=== PATIENT | male | born 1985 | race Hispanic/Latino ===

== ENCOUNTER 2021-01-19 11:49 | Emergency (ER) | payer OTHER ==
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
== END 2021-01-19 14:11 | disposition home or self-care (01) ==
LOC: ER 11:49
DX: S29.012A Strain of muscle and tendon of back wall of thorax, initial encounter (principal); V49.40XA Driver injured in collision with unspecified motor vehicles in traffic accident, initial encounter
CPT/HCPCS: 99282

== ENCOUNTER 2022-06-07 19:06 | Emergency (ER) | payer SELFPAY ==
--- OUTSIDE RECORDS SUMMARY | 2022-06-07 19:28 | XMS REPORT | Continuity of Care Document ---
:1985 Author Organization [facility] t Address [address] [place] [address] [address] [place] [address] Care Team Providers Name Role Phone Hector TAYLOR, Yola Primary Care Physician Nurse, [facility] Attending Clinician Unavailable Fernando Velasco MD Attending Clinician FERNANDO VELASCO Attending Clinician Unavailable Doctor Unassigned, [place] Attending Clinician Unavailable Problems This patient has no known problems. Allergies, Adverse Reactions, Alerts Allergy Allergy Status Severity Reaction(s) Onset Inactive Treating Comm ents Source Name Type Date Date Clinician NO KNOWN Drug Active Univers ALLERGIE Class ity of S [facility] Social History Social Habit Start Date Stop Date Quantity Comments Source Exposure to 2022-05-28 2022-06-[address] [facility]-CoV-2 00:00:00 16:13:[address] [facility] (event) Branch Tobacco use and 2022-06-07 2022-06-07 Smokeless tobacco Un iversity of exposure 00:00:00 00:00:00 non-user [facility] Sex Assigned At [birth year] Universit y of 00:00:00 00:00:00 [facility] Smoking Status Start Date Stop Date Source Tobacco [facility] Never [facility] Medications Ordered Filled Start Stop Current Ordering Indication Dosage Frequency Signature Comments Components Source Medication Medication Date Date Medication? Clinician (SIG) Name Name No known No No known Unive rs medications 06-07 medication it y of 18:50: s [address] Procedures Procedure Date / Time Performed Performing Clinician [facility] e CONSENT/REFUSAL FOR 2022-06-07 23:38:32 Doctor Unassigned, No Un [facility] DIAGNOSIS AND Name Medical Branch TREATMENT Encounters Start End Encounter Admission Attending Care Care Encounter Source Date/Time Date/Time Type Type Clinicians Facility Department ID 2022-06-07 2022-06-07 [facility] [id number] Univers 19:30:00 19:50:00 Visit Fernando Velasco [facility] [id number] ity of [place] [id number] Calvin as LEX?BLEA [id number] [address] MEDICAL OFFICE BUILDING 2022-06-07 2022-06-[address] [facility] [id number] Univers 19:30:00 19:30:[address] [facility] [place] [place] 2022-06-07 2022-06-07 Orders Doctor LIN [id number] Univers 00:00:00 00:00:00 Only Unassigned, DOMO [id number] ity of [place] [facility] [id number] Calvin as [id number] [place] [id number] Branch Results This patient has no known results.
[2022-06-07 20:14] LABS: Urine Blood 2+ (Negative); Urine Glucose Negative (Negative); Urine Protein Negative (Negative)
[2022-06-07] MEDS ORDERED: NA CHLORIDE 0.9% 1,000 ML ONE (20:29)
[2022-06-07] MEDS ORDERED: KETOROLAC 30 MG/ML INJ ONE (20:29)
[2022-06-07] MEDS ORDERED: ONDANSETRON 4 MG/2 ML VIAL ONE (20:29)
[2022-06-07 20:33] LABS: Urine Bacteria <20 /HPF (<20); Urine Mucus Slight /HPF (None Seen)
[2022-06-07 20:33] LABS: Absolute Lymphocytes (CBC) 2.7 K/uL (0.7-4.9); Hematocrit 47.2 % (39.6-49.0); Lymphocytes % 16.3 % (15.3-44.8); MCV 81.2 fL (80-100); MPV 7.5 fL (7.6-11.3); RBC Red Blood Cell Count 5.82 M/uL (4.33-5.43)
[2022-06-07 20:48] LABS: Protime INR 1.2
[2022-06-07 21:05] LABS: Albumin 3.7 g/dL (3.4-5.0); Potassium 3.8 mmol/L (3.5-5.1); Protein, Total 7.8 g/dL (6.4-8.2)
[2022-06-07] MEDS ORDERED: CEFTRIAXONE 1000 MG/VIAL ONE (21:38)
--- NOTE | 2022-06-07 22:31 | RAD REPORT ---
EXAM DESCRIPTION: CT - Abdomen Pelvis Wo Contrast - 06/07/2022 10:01 pm CLINICAL HISTORY: hematuria COMPARISON: No comparisons TECHNIQUE: Axial [address] imaging of the abdomen and pelvis was performed without IV contrast. No IV contrast was given because of allergy, abnormal renal function, patient refusal or physician re quest. No oral contrast was given. All CT scans are performed using dose optimization technique as appropriate and may include automated exposure control or mA/KV adjustment according to patient size. FINDINGS: No suspicious findings in the lung bases. Liver shows prominent fatty infiltration pattern with minimal sparing at the gallbladder fossa. No pa ncreas or spleen acute finding. Gallbladder and biliary tree are also without suspicious finding. No hydronephrosis or suspicious renal mass. No obstructing or nonobstructing calculi. No significant adrenal finding. Isodense renal masses and pyelonephritis cannot be excluded in the absence of IV con trast. The urinary bladder is without significant finding. No dilated bowel loops or bowel wall thickening. Appendix is normal. No free air, free fluid or infla mmatory stranding. No hernia, mass or bulky lymphadenopathy. No suspicious bony findings. IMPRESSION: No hydronephrosis, obstructing calculus or other acute finding. No abnormality to exp karla hematuria. Isodense masses and pyelonephritis are not excluded on a noncontrast study. Diffuse fatty infiltration of the liver.
--- NOTE | 2022-06-07 23:02 | ER ---
Nurse's Notes [facility] Name: Leon Chilel Jr Age: 37 yrs Sex: Male : 1985 Arrival Date: 06/07/2022 Time: 19:09 Bed 7 Private MD: Diagnosis: Acute cystitis with hematuria Presentation: 06/07 19:27 Chief complaint: Patient states: Blood tinged urine, pain when urinating since this ld1 morning. Coronavirus screen: At this time, the client does not indicate any symptoms associated with coronavirus-19. Ebola Screen: No symptoms or risks identified at this time. Initial Sepsis Screen: Does the patient meet any 2 criteria? No. Patient's initial sepsis screen is negative. Does the patient have a suspected source of infection? No. Patient's initial sepsis screen is negative. Risk Assessment: Do you want to hurt yourself or someone else? Patient reports no desire to harm self or others. Onset of symptoms was June 07, 2022 at 19:27. 19:27 Method Of Arrival: Ambulatory ld1 19:27 Acuity: CLAUDIA 3 ld1 Triage Assessment: 19:28 Headache History: Denies prior headaches. General: Appears in no apparent distress. ld1 comfortable, Behavior is calm, cooperative, appropriate for age. Pain: Complains of pain in meatus Pain does not radiate. Pain currently is 7 out of 10 on a pain scale. Quality of pain is described as burning, throbbing, Pain began 1 day ago. Is continuous, Also complains of no other associated symptoms. EENT: No signs and/or symptoms were reported regarding the EENT system. Neuro: Level of Consciousness is awake, alert, obeys commands, Oriented to person, place, time, situation. Cardiovascular: Capillary refill < 3 seconds Patient's skin is warm and dry. Respiratory: Airway is patent Respiratory effort is even, unlabored. GI: Abdomen is flat, non-distended. : Urine is blood tinged, Reports burning with urination. Derm: No signs and/or symptoms reported regarding the dermatologic system. Musculoskeletal: No signs and/or symptoms reported regarding the musculoskeletal system. Historical: - Allergies: 19: No Known Allergies; ld1 - Home Meds: 19: None [Active]; ld1 - PMHx: 19:28 None; ld1 - PSHx: 19:28 None; ld1 - Immunization history:: Adult Immunizations up to date, Client reports receiving the 2nd dose of the Covid vaccine. - Social history:: Smoking status: Patient denies any tobacco usage or history of. Patient/guardian denies using alcohol. Screenin:20 Abuse screen: Denies threats or abuse. Nutritional screening: No deficits noted. jb4 Tuberculosis screening: No symptoms or risk factors identified. Fall Risk None identified. Assessment: 20:20 General: Appears in no apparent distress. comfortable, Behavior is calm, cooperative, jb4 appropriate for age. Pain: Complains of pain in head of penis and shaft of penis Pain does not radiate. Pain currently is 7 out of 10 on a pain scale. Neuro: Level of Consciousness is awake, alert, obeys commands, Oriented to person, place, time, situation. Cardiovascular: Patient's skin is warm and dry. Respiratory: Airway is patent Respiratory effort is even, unlabored, Respiratory pattern is regular, symmetrical. GI: No signs and/or symptoms were reported involving the gastrointestinal system. : Reports burning with urination, pain with urination, Bloody urine with blood clots. EENT: No signs and/or symptoms were reported regarding the EENT system. Derm: Skin is intact, Skin is pink, warm \T\ dry. Musculoskeletal: Circulation, motion, and sensation intact. Range of motion: intact in all extremities. 21:30 Reassessment: Patient appears in no apparent distress at this time. Patient and/or jb4 family updated on plan of care and expected duration. Pain level reassessed. Patient is alert, oriented x 3, equal unlabored respirations, skin warm/dry/pink. 22:28 Reassessment: Patient appears in no apparent distress at this time. Patient and/or jb4 family updated on plan of care and expected duration. Pain level reassessed. Patient is alert, oriented x 3, equal unlabored respirations, skin warm/dry/pink. Reports still having headache, but it is now tolerable, denies needing anything else for pain. Patient states feeling better. Patient states symptoms have improved. 23:24 Reassessment: Patient appears in no apparent distress at this time. Patient and/or jb4 family updated on plan of care and expected duration. Pain level reassessed. Patient is alert, oriented x 3, equal unlabored respirations, skin warm/dry/pink. Vital Signs: 19:27 BP 149 / 92; Pulse 90; Resp 18; Temp 99.0(TE); Pulse Ox 99% on R/A; Weight 104.33 kg; ld1 Height 5 ft. 10 in. (177.80 cm); Pain 7/10; 20:30 BP 126 / 88; Pulse 92; Resp 16; Pulse Ox 98% on R/A; jb4 21:30 BP 119 / 80; Pulse 82; Pulse Ox 98% ; ll3 22:28 BP 121 / 80; Pulse 76; Resp 16; Pulse Ox 99% on R/A; jb4 23:00 BP 116 / 81; Pulse 74; Resp 16; Pulse Ox 98% on R/A; jb4 19:27 Body Mass Index 33.00 (104.33 kg, 177.80 cm) ld1 ED Course: 19:09 Patient arrived in ED. bp1 19:27 Triage completed. ld1 19:28 Mila Aguiar MD is Attending Physician. sd2 19:28 Arm band placed on right wrist. ld1 20:17 Sebastien Juárez, RN is Primary Nurse. jb4 20:18 Urine Culture Sent. ld1 20:18 Urine Microscopic Only Sent. ld1 20:20 Initial lab(s) drawn, by me, sent to lab. Inserted saline lock: 18 gauge in right jb4 antecubital area, using aseptic technique. Blood collected. 20:30 Ptt, Activated Sent. jb4 20:51 CMP Sent. jb4 20:51 Lipase Sent. jb4 20:51 CBC with Diff Sent. jb4 22:03 CT Abd/Pelvis - Without Contrast In Process Unspecified. EDMS 22:22 Patient has correct armband on for positive identification. Bed in low position. Call ll3 light in reach. Side rails up X 1. 23:00 Abraham Bush MD is Referral Physician. sd2 23:25 No provider procedures requiring assistance completed. IV discontinued, intact, jb4 bleeding controlled, No redness/swelling at site. Pressure dressing applied. Administered Medications: 20:45 Drug: Ketorolac 15 mg Route: IVP; Site: right antecubital; jb4 21:30 Follow up: Response: No adverse reaction; Marked relief of symptoms; Pain is decreased jb4 20:45 Drug: NS 0.9% 1000 ml Route: IV; Rate: 1 bolus; Site: right antecubital; jb4 21:30 Follow up: Response: No adverse reaction; IV Status: Completed infusion; IV Intake: jb4 1000ml 20:46 Drug: Zofran (Ondansetron) 4 mg Route: IVP; Site: right antecubital; jb4 21:30 Follow up: Response: No adverse reaction; Marked relief of symptoms jb4 21:43 Drug: Rocephin (cefTRIAXone) 1 grams Route: IV; Rate: bolus; Site: right antecubital; ll3 21:45 Follow up: Response: No adverse reaction; IV Status: Completed infusion jb4 Medication: 23:25 VIS not applicable for this client. jb4 Intake: 21:30 IV: 1000ml; Total: 1000ml. jb4 Outcome: 23:01 Discharge ordered by . sd2 23:25 Discharged to home ambulatory, with family. jb4 23:25 Condition: stable 23:25 Discharge instructions given to patient, Instructed on discharge instructions, follow up and referral plans. medication usage, Demonstrated understanding of instructions, follow-up care, medications, Prescriptions given X 1. 23:26 Patient left the ED. jb4 Signatures: Dispatcher [employer] EDMS Sebastien Juárez RN RN jb4 Susan Koehler Lauren, RN RN ld1 Jessica Millan RN RN ll3 Mila Aguiar MD MD sd2
--- NOTE | 2022-06-07 23:02 | EDPHYS ---
Physician Documentation [facility] Name: Leon Chilel Jr Age: 37 yrs Sex: Male : 1985 Arrival Date: 06/07/2022 Time: 19:09 Bed 7 Private MD: ED Physician Mila Aguiar HPI: 06/07 20:02 This 37 yrs old Male presents to ER via Ambulatory with complaints of Pain sd2 With Urination, Penile Pain, Headache, Fever. 20:02 37-year-old male presents with chief complaint of painful urination and hematuria. He sd2 reports that this initially started this morning when he urinated blood and small clots. He reports he has intermittently had hematuria with clots throughout the day but the last time he urinated, there was no blood that he noticed. He does have dysuria and reports that he had some epigastric abdominal pain that started last night. He also reports having a fever with a T-max of 101 F at urgent care which is where he went prior to being sent here. He endorses associated nausea without vomiting. Denies diarrhea, rash, or skin changes to the area. No prior urologic history.. Historical: - Allergies: 19:28 No Known Allergies; ld1 - Home Meds: 19:28 None [Active]; ld1 - PMHx: 19:28 None; ld1 - PSHx: 19:28 None; ld1 - Immunization history:: Adult Immunizations up to date, Client reports receiving the 2nd dose of the Covid vaccine. - Social history:: Smoking status: Patient denies any tobacco usage or history of. Patient/guardian denies using alcohol. ROS: 20:02 Constitutional: Negative for fever, chills, and weight loss, Eyes: Negative for injury, sd2 pain, redness, and discharge, ENT: Negative for injury, pain, and discharge, Cardiovascular: Negative for chest pain, palpitations, and edema, Respiratory: Negative for shortness of breath, cough, wheezing. Abdomen/GI: Positive for abdominal pain, nausea, Negative for vomiting, diarrhea. : Positive for dysuria and hematuria. Negative for frequency. MS/Extremity: Negative for injury and deformity, Skin: Negative for injury, rash, and discoloration, Neuro: Negative for headache, numbness and tingling. Exam: 20:02 Constitutional: This is a well developed, well nourished patient who is awake, alert, sd2 and in no acute distress. Head/Face: Normocephalic, atraumatic. Eyes: EOMI, normal conjunctiva bilaterally Chest/axilla: Normal chest wall appearance and motion. Nontender with no deformity. Cardiovascular: Regular rate and rhythm with a normal S1 and S2. No gallops, murmurs, or rubs. 2+ distal pulses. Respiratory: Lungs have equal breath sounds bilaterally, clear to auscultation and percussion. No rales, rhonchi or wheezes noted. No increased work of breathing, no retractions or nasal flaring. Abdomen/GI: Soft, non-tender, with normal bowel sounds. No guarding or rebound. No evidence of tenderness throughout. Skin: Warm, dry with normal turgor. Normal color with no rashes, no lesions, and no evidence of cellulitis. MS/ Extremity: Pulses equal, no cyanosis. Neurovascular intact. Full, normal range of motion. Ambulatory without difficulty. Psych: Awake, alert, with orientation to person, place and time. Behavior, mood, and affect are within normal limits. Vital Signs: 19:27 BP 149 / 92; Pulse 90; Resp 18; Temp 99.0(TE); Pulse Ox 99% on R/A; Weight 104.33 kg; ld1 Height 5 ft. 10 in. (177.80 cm); Pain 7/10; 20:30 BP 126 / 88; Pulse 92; Resp 16; Pulse Ox 98% on R/A; jb4 21:30 BP 119 / 80; Pulse 82; Pulse Ox 98% ; ll3 22:28 BP 121 / 80; Pulse 76; Resp 16; Pulse Ox 99% on R/A; jb4 23:00 BP 116 / 81; Pulse 74; Resp 16; Pulse Ox 98% on R/A; jb4 19:27 Body Mass Index 33.00 (104.33 kg, 177.80 cm) ld1 MDM: 20:01 Patient medically screened. sd2 20:02 Differential diagnosis: nonspecific abdominal pain, appendicitis, UTI, urinary sd2 retention, prostatitis, urethritis, among others. Data reviewed: vital signs, nurses notes. 22:59 Data reviewed: lab test result(s), radiologic studies. Counseling: I had a detailed sd2 discussion with the patient and/or guardian regarding: the historical points, exam findings, and any diagnostic results supporting the discharge/admit diagnosis, lab results, radiology results, the need for outpatient follow up, to return to the emergency department if symptoms worsen or persist or if there are any questions or concerns that arise at home. Medical screen evaluation completed. [facility] emergency medical condition absent. ED course: Labs and imaging reviewed. Labs are grossly within normal clinical limits aside from a urine with hematuria and signs of infection. Rocephin was given and a urine culture was sent. CT of the abdomen and does not show any acute abnormalities. Patient was advised of all results and need for outpatient follow-up. He will be discharged on oral antibiotics. He was informed that if his hematuria does not clear, he will need to follow-up outpatient with urology as well. He is comfortable with plan for discharge and verbalizes understanding of strict return precautions. Pt is feeling improved and well and eating [employer] at time of my repeat evaluation.. 06/07 19:25 Order name: Urine Culture [facility] 06/07 19:25 Order name: Urine Microscopic Only; Complete Time: 21: [facility] 06/07 20:01 Order name: CBC with Diff; Complete Time: 21: in06/07 20:01 Order name: CMP; Complete Time: 21:06/07 20:01 Order name: Lipase; Complete Time: 21:06/07 20:01 Order name: PT-INR; Complete Time: 21: in06/07 19:25 Order name: Urine Dipstick-Ancillary (obtain specimen); Complete Time: 20:17 [facility] 06/07 20:01 Order name: Ptt, Activated; Complete Time: 21:06/07 20:14 Order name: Urine Dipstick-Ancillary; Complete Time: 20:25 EDMS 06/07 21:16 Order name: CT Abd/Pelvis - Without Contrast; Complete Time: 22:33 06/07 20:17 Order name: IV; Complete Time: 20:30 jb4 Administered Medications: 20:45 Drug: Ketorolac 15 mg Route: IVP; Site: right antecubital; jb4 21:30 Follow up: Response: No adverse reaction; Marked relief of symptoms; Pain is decreased jb4 20:45 Drug: NS 0.9% 1000 ml Route: IV; Rate: 1 bolus; Site: right antecubital; jb4 21:30 Follow up: Response: No adverse reaction; IV Status: Completed infusion; IV Intake: jb4 1000ml 20:46 Drug: Zofran (Ondansetron) 4 mg Route: IVP; Site: right antecubital; jb4 21:30 Follow up: Response: No adverse reaction; Marked relief of symptoms jb4 21:43 Drug: Rocephin (cefTRIAXone) 1 grams Route: IV; Rate: bolus; Site: right antecubital; ll3 21:45 Follow up: Response: No adverse reaction; IV Status: Completed infusion jb4 Disposition Summary: 06/07/22 23:01 Discharge Ordered Location: Home sd2 Problem: new sd2 Symptoms: have improved sd2 Condition: Stable sd2 Diagnosis - Acute cystitis with hematuria sd2 Followup: sd2 - With: Private Physician - When: 2 - 3 days - Reason: Recheck today's complaints, Continuance of care, Re-evaluation by your physician Followup: sd2 - With: Abraham Bush MD - When: 1 week - Reason: Recheck today's complaints, Continuance of care, Re-evaluation by your physician Discharge Instructions: - Discharge Summary Sheet sd2 - Hematuria, Adult sd2 - Urinary Tract Infection, Adult sd2 Forms: - Medication Reconciliation Form sd2 - Thank You Letter sd2 - Antibiotic Education sd2 - Prescription Opioid Use sd2 Prescriptions: - cefdinir 300 mg Oral capsule - take 1 capsule by ORAL route every 12 hours for 10 days; 20 capsule; Refills: sd2 0, Product Selection Permitted Signatures: Dispatcher [employer] EDRita Castro, ENVIRONMENTAL SCIENCE PROGRAM DIRECTOR-C ENVIRONMENTAL SCIENCE PROGRAM DIRECTOR-Csnw Sebastien Juárez RN RN jb4 Chioma De Luna RN RN ld1 Jessica Millan RN RN ll3 Mila Aguiar MD MD sd2
== END 2022-06-07 23:26 | disposition home or self-care (01) ==
LOC: ER 19:06
DX: N30.01 Acute cystitis with hematuria (principal)
CPT/HCPCS: 36415; 74176; 80053; 81003; 81015; 83690; 85025; 85610; 85730; 87086; 87088; 96361; 96374; 96375; 99284; J2405; J7030